=== PATIENT | male | born 1975 | race African-American/Black ===

== ENCOUNTER 2024-01-14 10:25 | Emergency (ER) | payer MEDICAID ==
[~2024-01-14] VITALS: Ht 172.7 cm; Wt 63.5 kg
[2024-01-14 10:34] VITALS: BP 133/90; PULSE 94; RESP 16; TEMP 97.8; O2SAT 100
[2024-01-14] MEDS ORDERED: NAPR-681 MT (12:03)
[2024-01-14] MEDS ORDERED: CLIN-116 MT (12:03)
[2024-01-14] MEDS ORDERED: ACET-2708 MT (12:03)
== END 2024-01-14 12:24 | disposition home or self-care (01) ==
LOC: ER 10:25
DX: S03.2XXA Dislocation of tooth, initial encounter (principal); K08.89 Other specified disorders of teeth and supporting structures; Z79.1 Long term (current) use of non-steroidal anti-inflammatories (NSAID); X58.XXXA Exposure to other specified factors, initial encounter; Y93.89 Activity, other specified; Y92.89 Other specified places as the place of occurrence of the external cause; Y99.8 Other external cause status
CPT/HCPCS: 99283